=== PATIENT | female | born 1980 | race Caucasian/White ===

== ENCOUNTER 2019-12-26 18:14 | Emergency (ER) | payer BC ==
[~2019-12-26] VITALS: Ht 167.6 cm; Wt 79.5 kg
[2019-12-26 18:20] VITALS: Ht 167.6 cm; Wt 79.5 kg
[2019-12-26] MEDS ORDERED: GABAPENTIN100 MG PO (18:24)
[2019-12-26] MEDS ORDERED: CYMBALTA60 MG PO (18:24)
[2019-12-26] MEDS ORDERED: LIORESAL 10 MG10 MG PO (18:25)
[2019-12-26] MEDS ORDERED: MOBIC7.5 MG PO (18:25)
[2019-12-26] MEDS ORDERED: ZANAFLEX4 MG PO (18:26)
[2019-12-26 19:23] LABS: BASOPHILS 0.2 % (0-2); HEMATOCRIT 40.8 % (36.0-48.0); HEMOGLOBIN 13.7 g/dL (12-16); IMMATURE GRANULOCYTES 0.2 % (0-5); LYMPHOCYTES 14.4 % (15-50); MCH 31.3 pg (26.0-34.0); MCHC 33.6 g/dL (31.0-37.0); MCV 93.2 fL (80.0-100.0); MEAN PLATELET VOLUME 9.7 fL (7.4-10.4); MONOCYTES 5.4 % (2-11); NEUTROPHILS 78.8 % (40-80); PLATELET COUNT 292 10x3/uL (130-400); RBC 4.38 10x6/uL (4.00-5.40); RDW 12.6 % (11.5-14.5)
[2019-12-26 19:42] LABS: CALC OSMOLALITY 273 mosm/kg (275-300); CARBON DIOXIDE 24.6 mmol/L (21.0-32.0); CHLORIDE - SERUM 105 mmol/L (98-107); CREATININE - SERUM 0.8 mg/dL (0.6-1.3); GLUCOSE 126 mg/dL (74-106); POTASSIUM - SERUM 4.2 mmol/L (3.5-5.1); SODIUM 137 mmol/L (136-145); UREA NITROGEN 8 mg/dL (7-18); eGFR NON AFRICAN AMERICAN 85 mL/min (90-120)
[2019-12-26 19:47] LABS: BILIRUBIN NEGATIVE (NEGATIVE); KETONE NEGATIVE (NEGATIVE); NITRITE NEGATIVE (NEGATIVE); UDS - AMPHET NEGATIVE QUAL (NEGATIVE); UDS - BARB NEGATIVE QUAL (NEGATIVE); UDS - BENZO NEGATIVE QUAL (NEGATIVE); UDS - COCAINE NEGATIVE QUAL (NEGATIVE); UDS - OPIATE NEGATIVE QUAL (NEGATIVE); UDS - PCP NEGATIVE QUAL (NEGATIVE); UDS - THC NEGATIVE QUAL (NEGATIVE); UROBILINOGEN NORMAL mg/dL (< 2)
[2019-12-26 19:48] LABS: BACTERIA MODERATE HPF (NONE SEEN); EPITHELIAL CELLS 0-5 /hpf (0-5)
[2019-12-26 19:48] LABS: ALBUMIN 4.1 g/dL (3.4-5.0); ALKALINE PHOSPHATASE 59 U/L (30-120); ALT (SGPT) 19 U/L (10-68); BILIRUBIN - TOTAL 0.32 mg/dL (0.2-1.3); MAGNESIUM - SERUM 2.1 mg/dL (1.8-2.4)
[2019-12-26 20:45] LABS: HCG URINE NEGATIVE (NEGATIVE)
[2019-12-26] MEDS ORDERED: ZOFRAN ODT4 MG/UDTAB PO (22:01)
[2019-12-26] MEDS ORDERED: FLAGYL500 MG PO (22:01)
[2019-12-26] MEDS ORDERED: VIBRAMYCIN 100100 MG PO (22:01)
[2019-12-26] MEDS ORDERED: MACROBID100 MG PO (22:01)
[2019-12-26 22:30] VITALS: BP 127/71
== END 2019-12-26 22:30 | disposition home or self-care (01) ==
LOC: D.ER 18:14
PROVIDERS: Emergency Medicine; Family Medicine
DX: T42.8X1A Poisoning by antiparkinsonism drugs and other central muscle-tone depressants, accidental (unintentional), initial encounter (principal); N76.0 Acute vaginitis; R11.2 Nausea with vomiting, unspecified; N39.0 Urinary tract infection, site not specified; R73.9 Hyperglycemia, unspecified; R06.02 Shortness of breath; R30.0 Dysuria; R41.0 Disorientation, unspecified